=== PATIENT | male | born 1980 ===

== ENCOUNTER 2018-03-23 08:51 | Emergency (ER) | payer MEDICAID ==
[2018-03-23 09:00] VITALS: BMI 31.3
[2018-03-23 09:02] VITALS: BP 143/76; PULSE 91; RESP 20; TEMP 98.5; O2SAT 98
--- NOTE | 2018-03-23 10:36 | ED PDOC ---
Lower Extremity Pain/Injury Time Seen by Provider: 03/23/18 09:57 Chief Complaint (Nursing): Lower Extremity Problem/Injury History Per: Patient Onset/Duration Of Symptoms: Days (2) Current Symptoms Are (Timing): Still Present Severity: Mild Pain Scale Rating Of: 2 Additional Complaint(s): Twisted right ankle yesterday while walking in street. Pain on wt bearing Past Medical History Vital Signs: Last Vital Signs Temp 98.5 F 03/23/18 09:01 Pulse 91 H 03/23/18 09:01 Resp 20 03/23/18 09:01 BP 143/76 03/23/18 09:01 Pulse Ox 98 03/23/18 09:01 - Medical History PMH: No Chronic Diseases - Family History Family History: States: Unknown Family Hx - Home Medications Home Medications: Ambulatory Orders Medication Instructions Recorded Naproxen [Naprosyn] 500 mg PO Q12H #20 tab 03/23/18 - Allergies Allergies/Adverse Reactions: Allergies Allergy/AdvReac Type Severity Reaction Status Date / Time No Known Allergies Allergy Verified 03/23/18 09:08 Review of Systems Musculoskeletal: Positive for: Foot Pain Neurological: Negative for: Weakness, Numbness Physical Exam - Physical Exam Appears: Positive for: Non-toxic, No Acute Distress Extremity: Positive for: Other (Right ankle mild swelling and tenderness lateral maleolus, Tenderness at tip of maleolus. No instability) - ECG O2 Sat by Pulse Oximetry: 98 Disposition - Clinical Impression Clinical Impression: Ankle sprain - Patient ED Disposition Is Patient to be Admitted: No Counseled Patient/Family Regarding: Studies Performed, Diagnosis, Need For Followup, Rx Given - Disposition Referrals: Podiatry Clinic [Outside] Disposition: Routine/Home Disposition Time: 10:37 Condition: FAIR Prescriptions: Naproxen [Naprosyn] 500 mg PO Q12H #20 tab Instructions: Ankle Sprain
--- NOTE | 2018-03-23 10:49 | RAD ---
PROCEDURE: Right Ankle Radiographs. HISTORY: Right ankle injury. COMPARISON: None FINDINGS: BONES: Normal. No fracture. JOINTS: Normal. No osteoarthritis. Ankle mortise maintained. Talar dome intact SOFT TISSUES: Lateral soft tissue swelling without distal fibular fracture OTHER FINDINGS: None. IMPRESSION: Soft tissue swelling without acute articular or osseous abnormality.
--- NOTE | 2018-03-23 11:18 | RAD ---
PROCEDURE: Right Foot Radiographs. HISTORY: trauma COMPARISON: None. FINDINGS: BONES: No acute fracture or destructive bony lesion identified. JOINTS: Normal. SOFT TISSUES: Normal. OTHER FINDINGS: None. IMPRESSION: Unremarkable right foot radiographs.
== END 2018-03-23 10:58 | disposition home or self-care (01) ==
LOC: H.ER 08:51
DX: S99.911A Unspecified injury of right ankle, initial encounter (principal); S99.921A Unspecified injury of right foot, initial encounter; X50.9XXA Other and unspecified overexertion or strenuous movements or postures, initial encounter; Y92.89 Other specified places as the place of occurrence of the external cause